=== PATIENT | male | born 1945 | race Caucasian/White ===

== ENCOUNTER 2021-08-05 13:05 | Outpatient (RCR) | payer OTHER, SELFPAY ==
--- NOTE | 2021-08-05 13:56 | PTOPEVAL ---
Thank you for referring MARQUES GARCIA to [facility].? The patient is scheduled to be seen for therapy? ____x/week for ___ weeks. Please review, sign, date and return this plan of care GRACE. I agree with and certify that the following plan of care is medically necessary. Referring Physician Date Admitting Provider: Attending Provider: Yonatan Ross, MAY Referring Provider: *PT Outpatient Evaluation Start: 08/05/21 13:05 Freq: Status: Active Protocol: Document 08/05/21 13:05 [facility] (Rec: 08/05/21 13:56 [facility] [id number]) Therapy Assessment Status Assessment Status Assessment Status Evaluation Evaluation Information Problem Diagnosis unsteady gait, generalized weakness Onset 07/26/21 Subjective Information patient reports he is having Query Text:As Reported By Patient/ usnteady gait/poor balance. he Family reports he has been walking with his frequently lately. he reports he has fallen recently. he reports he tripped over the curb. he reports no broken bones. he reports he notices his balance is off when he is wlaing with his and in general while standing. he reports he uses a cane in the house and while walking around the track with his . he reports he has had atleast 2 falls this year so far. Prior Level of Function Comments Additional Prior Level of Function patient reports he is retired Comments from working in the [employer]. he reports he has been retired for about 2 years. however, he reports he has been noticing issues with his balance worsening for about 5 years. Pain Assessment Timing of Pain Assessment Timing of Pain Assessment Assessment Pain Scale Pain Scale Used Numeric (1 - 10) Self Report Pain Assessment Generalized Reported Pain Level 3 Pain Description Tightness Additional Pain Comments multiple lipomas Right Knee(s) Reported Pain Level 1 Pain Score Pain Score 1,3: Self Report Interventions Used Interventions Used By Clinicians Activity or ADL's,Education, Exercise Lower Extremity Muscle Strength Testing Ge
--- NOTE | 2021-08-24 14:28 | PTOPEVAL ---
Thank you for referring MARQUES GARCIA to [facility].? The patient is scheduled to be seen for therapy? ____x/week for ___ weeks. Please review, sign, date and return this plan of care GRACE. I agree with and certify that the following plan of care is medically necessary. Referring Physician Date Admitting Provider: Attending Provider: Yonatan Ross, MAY Referring Provider: *PT Outpatient Evaluation Start: 08/05/21 13:05 Freq: Status: Active Protocol: Document 08/24/21 13:30 [facility] (Rec: 08/24/21 14:28 [facility] [email or web address]) Therapy Assessment Status Assessment Status Assessment Status Progress Evaluation Information Problem Diagnosis unsteady gait, generalized weakness Onset 07/26/21 Subjective Information patient reports he feels good Query Text:As Reported By Patient/ this date. he reports Family therapy feels it is helping. he reports he continues to feel uncoordinated at times with walking. Pain Assessment Timing of Pain Assessment Timing of Pain Assessment Assessment Pain Scale Pain Scale Used Numeric (1 - 10) Self Report Pain Assessment Generalized Reported Pain Level 0 Right Knee(s) Reported Pain Level 3 Additional Pain Comments medial knee Pain Score Pain Score 0,3: Self Report Interventions Used Interventions Used By Clinicians Activity or ADL's,Education, Exercise Balance Assessment Tinetti Balance Assessment Sitting Balance Steady, safe Ability to Arise Able, w/o using arms Attempts to Arise Arises on 1st attempt Immediate Standing Balance Steady w/o support Standing Balance Steady, wide stance Nudged Response Staggers, catches self Standing with Eyes Closed Unsteady Step Pattern Turning 360 Degrees Discontinuous steps Stability Turning 360 Degrees Unsteady, grabs/staggers Sitting Down Uses arms or unsteady Initiation of Gait No hesitancy Right Foot Step Length Does pass stance foot Right Foot Step Height Completely clears floor Left Foot Step Length Does pass stance foot Left Foot Step Height Completely clears floor Step Symmetry Step length appears equal Step Continuity Steps appear continuous Path Description Mild/moderate deviation Trunk Description No sway but posturing Walking Stance Heels apart Assistive Devices Used Yes Tinetti Composite Score (Balance + Gait) 19 (/28) Interpret
--- NOTE | 2021-08-31 15:01 | PTOPEVAL ---
Thank you for referring MARQUES GARCIA to [facility].? The patient is scheduled to be seen for therapy? __2__x/week for 6 visits. Please review, sign, date and return this plan of care GRACE. I agree with and certify that the following plan of care is medically necessary. Referring Physician Date Admitting Provider: Attending Provider: Yonatan Ross, MAY Referring Provider: *PT Outpatient Evaluation Start: 08/05/21 13:05 Freq: Status: Active Protocol: Document 08/31/21 13:40 [facility] (Rec: 08/31/21 15:00 [facility] [email or web address]) Therapy Assessment Status Assessment Status Assessment Status Progress Evaluation Information Problem Diagnosis right knee pain, generalized weakness Subjective Information Pt. enters today with order Query Text:As Reported By Patient/ from his doctor to address Family developed right knee pain. He reporst that his knee pain began about 1 week ago after walking at the park he noticed pain on the inside of the right knee. He denies any recent xray. He states that pain is worsened with standing . He reports that he enjoys walking for exercise and has been unable to without pain recently. He reports that he would like to decrease his right knee pain. Pain Assessment Pain Scale Pain Scale Used Numeric (1 - 10) Self Report Pain Assessment Generalized Reported Pain Level 4 Right Knee(s) Reported Pain Level 4 Pain Score Pain Score 4,4: Self Report Interventions Used Interventions Used By Clinicians Electrical Stimulation, Exercise,Heat Lower Extremity Range of Motion General Lower Extremity Range of Motion Gross Lower Extremity Range of Motion -right knee AROM 4-112 Comments -left knee AROM 0-115 Lower Extremity Muscle Strength Testing General Lower Extremity Strength Gross Lower Extremity Strength -bilateral hip flexion 4+/5 -bilateral hip abduction 4/5 -bilateral knee extension 4+/5 -bilatear knee flexion 4+/5 -left ankle dorsiflexion 4+/5 -right ankle dorsiflexion 5/5 Muscle Length Testing Muscle Length Testing Left Hamstring Length 20 Query Text:(90 - 90 Position) Right Hamstring Length 24 Query Text:(90 - 90 Position)
== END 2021-09-22 14:08 | disposition home or self-care (01) ==
LOC: CHSPT 13:05
PROVIDERS: PCP Physician Assistant; Visit Provider Physician Assistant
DX: R26.81 Unsteadiness on feet (principal); M25.561 Pain in right knee
CPT/HCPCS: 97014; 97110; 97112; 97161; 97530; G0283